=== PATIENT | female | born 1970 | race Caucasian/White ===

== ENCOUNTER 2016-06-28 23:45 | Inpatient (IN) | payer MEDICARE, BC ==
--- NOTE | ~2016-06-28 | HP ---
History And Physical [place] [id number] [facility] [place]. [address] NAME: LYNDSEY WINN : 66 STATUS : ADM IN [facility]#: [id number] AGE: 46 ADM/REG DATE : 06/29/16 MR#: [id number] REPORT SERV DATE: 06/29/16 DICTATED BY: ERNESTINA FREEMAN DATE: 06/29/16 REPORT STATUS : Draft TRANSCRIBED BY: SHAILA DATE: 06/29/16 DATE OF ADMISSION: 06/29/2016 REASON FOR ADMISSION: Altered mentation and chest pain. HISTORY OF PRESENT ILLNESS: This is a chronically ill-appearing, , female patient who dialyzes at [place] on Thursday, , and Thursday. She is attended by her and reports to [facility] with a complaint of chest pain. Her is at her bedside and provides the recent information for HPI as the patient is currently writhing and moaning in bed and does not communicate for questioning for HPI. The patient apparently attended her usual hemodialysis schedule as per schedule on Thursday of the previous week. Post dialysis, she began to have an onset of chest pain and continued to have difficulty over 24 hours prompting evaluation here. The asserts that her altered mentation began while sitting in the emergency department. She has had a CT of the head this morning, which was negative for acute findings. She has previously been evaluated from a cardiologic standpoint and found not to be an operative candidate according to previous 2015 history and physical completed by Dr. Leo Loza. The patient is lying in bed this morning, is awake, but does not communicate during questioning regarding HPI or current medical issues. Her is at bedside and provides information and she does not appear to be in acute distress. PAST MEDICAL HISTORY: Positive for end-stage renal disease. Thursday, , and Thursday hemodialysis at the [place]. History is also positive for coronary artery disease with previous three-vessel CABG with recurrence of disease with her deemed as a non operative candidate. Previous pancreatitis with common bile duct stone extraction; cholecystectomy; CHF; hyperparathyroidism secondary to renal disease, status post subtotal parathyroidectomy; hypertension; hyperlipidemia; tobacco abuse; ongoing SMA stenosis; diabetes mellitus; and chronic back pain with multiple narcotics on board. REVIEW OF SYSTEMS: Unable to be completed with the patient as listed above, due to her perceived altered mentation. SOCIAL HISTORY: No ETOH. No illicit drugs by report of the . Continues to smoke. MEDICATIONS: Current active medications and allergies are as follows on admission: ProAir HFA inhaler p.r.n. shortness of breath, Xanax 0.25 mg p.o. b.i.d. p.r.n. anxiety, ASA 325 mg daily, Tenormin 25 mg p.o. b.i.d., Lipitor 40 mg p.o. at bedtime, Bumex 1 mg p.o. daily, Rocaltrol 0.5 mg Thursday and Thursday, PhosLo four tabs with meals, Marinol 2.5 mg p.o. before breakfast, Cymbalta 20 mg p.o. at bedtime, Lexapro 10 mg p.o. daily, Duragesic 1 topical q.72h, NovoLog via sliding scale, omeprazole 20 mg p.o. daily, Percocet 10/325 one tab q.4 hours p.r.n., MiraLax one packet daily, Effient 10 mg p.o. daily, Lyrica 25 mg p.o. t.i.d., Phenergan 25 mg p.o. t.i.d. and Zanaflex 2 mg p.o. t.i.d. PHYSICAL EXAMINATION: VITAL SIGNS: Blood pressure 195/95, temperature 96.8, respiratory rate 18, heart rate is 68 History And Physical [address] [address] NAME: LYNDSEY WINN : 66 STATUS : ADM [facility]#: [id number] AGE: 46 ADM/REG DATE : 06/29/16 MR#: [id number] REPORT SERV DATE: 06/29/16 DICTATED BY: ERNESTINA FREEMAN DATE: 06/29/16 REPORT STATUS : Draft TRANSCRIBED BY: SHAILA DATE: 06/29/16 beats per minute. GENERAL: She is a chronically ill-appearing, female patient, who does not interact during conversation regarding HPI, with the history of present illness provided by her at bedside. HEENT: Normocephalic, atraumatic. Normal ocular movements. No scleral icterus or conjunctival pallor is appreciated. NECK: Supple without thyromegaly. There is no JVD, no mass. CHEST: Shows positive S1 and S2. No rubs or gallops. LUNGS: Diminished throughout with no evidence of appreciable rhonchi or wheezes. GI: Shows positive bowel sounds. No appreciable mass, no tenderness. : Examination is deferred. EXTREMITIES: Show positive pulses to all four extremities. She does have a left upper extremity fistula with a palpable bruit and thrill. NEUROLOGIC: She is unable to be tested as for reasons stated in HPI. SKIN: Warm, dry, and intact to the visualized surfaces. No rashes, lesions, or ecchymosis. NEURO: Her mood and affect are not measured, but appear to be somewhat inappropriate. LABORATORY DATA: Pertinent laboratories and imaging to this evaluation are as follows: Portable chest x-ray, CABG. No acute cardiopulmonary abnormality. Brain CT without contrast impression, no evidence of acute abnormality. Evaluation very limited by motion. If there is continued clinical concern, repeat exam is recommended. Urinalysis, 100 mg/dL protein, small amount of blood. No leukocyte esterase, rbc's 14, WBC less than 1. Chest pain profile: Sodium 141, potassium 4.8, chloride 96, CO2 of 27, BUN 45, creatinine 0.78, reflected GFR at 4 mL/minute, glucose of 178, calcium 8.7, magnesium 2.3. Troponin less than 0.02. WBC at 9.2, RBC 4.22, hemoglobin 12.7, hematocrit 38.3, platelets at 200. IMPRESSION AND PLAN: End-stage renal disease, Thursday, Thursday at [facility]. Now, reporting to [facility] with chest pain, with non-elevated troponin and acute mental status change after arrival here with a negative head CT and multiple medications as listed above that may effect her orientation. We will hold her pain medications currently with her altered status. Continue her Xanax only on a p.r.n. schedule as it has been. Check an ABG with a smoking history and altered mentation as listed above. Protect her left upper extremity fistula. Consider repeat head CT. Ask Neurology to evaluate the patient for altered mentation and check B12, folic acid, and TSH for underlying metabolic concerns that may be producing her altered state. Control her blood pressure with home medications as well as p.r.n. medications. She continues to show elevation and is unable to take p.o. medications. We may need to place her in an ICU setting for the assistance of Razia. Next hemodialysis will be on Thursday of this week. Trend her troponins. She has clinically been deemed not a surgical candidate in previous follow-ups. Should her troponins show elevation, we would ask for a cardiac evaluation for further opinion regarding maximizing her cardiac potential. Further modification of treatment plan may be made based on the clinical presentation of the patient, laboratory results, and further consultation with Renal attending. We appreciate Neurology's assistance and evaluation with this patient. DICTATED BY: Aakash Mackey NP History And Physical [address] [address] NAME: LYNDSEY WINN : 66 STATUS : ADM IN PAT#: [id number] AGE: 46 ADM/REG DATE : 06/29/16 MR#: [id number] REPORT SERV DATE: 06/29/16 DICTATED BY: ERNESTINA FREEMAN DATE: 06/29/16 REPORT STATUS : Draft TRANSCRIBED BY: SHAILA DATE: 06/29/16 /SHAILA Ernestina Freeman M.D. / [id number] CC: Lachelle Villalobos M.D.
--- NOTE | ~2016-06-28 | DS ---
Discharge Summary [facility] [address] [place]. [address] NAME: LYNDSEY WINN : 66 STATUS : DIS IN PAT#: [id number] AGE: 46 ADM/REG DATE : 06/29/16 MR#: [id number] REPORT SERV DATE: 07/11/16 DICTATED BY: AVELINO HYMAN DATE: 07/10/16 REPORT STATUS : Draft TRANSCRIBED BY: MODKatina DATE: 07/10/16 Data Collection from hospitalization DISCHARGE DIAGNOSES: 1. End-stage renal disease. 2. Hypertension. 3. Diabetes mellitus. 4. Coronary artery disease. 5. History of pancreatitis. 6. Congestive heart failure. 7. Hyperparathyroidism secondary to renal disease. 8. Hyperlipidemia. 9. Tobacco use. 10.Chronic back pain. CONSULTATIONS: Barb Yepez MD. PROCEDURES: 1. Intubation, 06/29/2016. 2. CT scan of the brain without contrast, 06/29/2016. DISCHARGE MEDICATIONS: Dilaudid as instructed, Ativan 2 mg half to 1 janette-dissolved cheek every four hours as needed for agitation, Zofran ODT 8 mg every six hours as needed for nausea and vomiting, Dulcolax 10 mg per rectum if no bowel movement in three days. CONDITION ON DISCHARGE: Stable. DISPOSITION: The patient was discharged home to be followed by [facility] on a renal-diabetic diet with activities as instructed. HOSPITAL COURSE: This is a chronically, ill-appearing, 46-year-old, female who has end-stage renal disease. She presented to the [facility] with the complaint of chest pain. Her was at the bedside and provided the most recent information as the patient was currently writhing and moaning in bed and did not communicate for questioning. She had apparently attended her usual hemodialysis schedule. Postdialysis, she began to have the onset of chest pain and continued to have difficulty over 24 hours which prompted evaluation here. Her asserts that her altered mentation began while sitting in the emergency department. She had a CT scan of the brain without contrast which was negative for acute findings. She was previously evaluated from a cardiac standpoint and found not to be an operative candidate. According to her previous 2016 history which had been completed by Dr. Leo Loza. She was lying in bed at this time and was awake but did not communicate during questioning. She did not appear to be in acute distress. She was admitted to the hospital at this time for further evaluation and treatment. Upon admission, her pain medications were held due to her altered status. Xanax was continued. ABGs were going to be checked. She does smoke. We would protect the left upper extremity fistula. B12, folic acid, and TSH would be checked for underlying metabolic concerns. We would control her blood pressure with home medication. If she continued to Discharge Summary [place] [address] [place]. [address] NAME: LYNDSEY WINN : 66 STATUS : DIS IN PAT#: [id number] AGE: 46 ADM/REG DATE : 06/29/16 MR#: [id number] REPORT SERV DATE: 07/11/16 DICTATED BY: AVELINO HYMAN DATE: 07/10/16 REPORT STATUS : Draft TRANSCRIBED BY: SHAILA DATE: 07/10/16 show elevation and was unable to take oral medications, we may need to place her in the ICU setting for assistance of Razia. We would trend her troponin. She had clinically been deemed not a surgical candidate. Should her troponins show elevation, we would ask for cardiac evaluation for further opinion regarding maximizing her cardiac potential. The following day, she was seen by Dr. Barb Yepez regarding encephalopathy and agitations. Over the course of the day, her condition had escalated to the point of screaming and combativeness that were so severe that the nursing staff were unable to manage her safely. She was transferred to the intensive care unit for additional assistance. It was determined that the best course of action was to electively intubate the patient as she was requiring 4 nurses and 1 nurse tech to restrain her and she was screaming so loudly that it was audible on the other end of the CCU. She was awake and was able to verbalize words. However, did not follow commands. She would not track. She had no lateralizing symptoms. Dr. Yepez performed intubation and placed the patient on propofol and fentanyl for sedation. She met with the patient's after the intubation and had a long conversation about the gradual decline in both renal failure and now severe coronary artery disease without many additional options for management. He verbalized his frustration with her continued decline and noted that he had DNR papers in a gun safe at home and that she had been seen by Dr. Ward in the past. Unfortunately, none of this information was available until after she was intubated and he was without objection to leaving her intubated at this time. It was felt that she may require a lumbar puncture. The patient had recently verbalized that she wanted to be a DNR code status. He stated that her quality of life was fairly poor overall. It was elected to stop dialysis. On 07/01/2016, she appeared comfortable. She was going to be weaned off the ventilator. On 07/01/2016, comfort measures were in place. She was evaluated by Dr. Cash Ward. She was going to be transitioned to the floor. She was going to be kept comfortable. On 07/02/2016, a hospice director met with the patient and her . Hospice services and philosophies were discussed. The patient was in agreement with comfort care and would like to go home with Hospice. Discharge instructions were given. Due to her stable condition, she was discharged home to be followed by [facility] with the above-stated instructions. Information collected by: Mae Elizondo I submit the above information as my discharge summary. TG/MODL Avelino Hyman M.D. / [id number] CC: Lachelle Villalobos M.D. [facility] Sascha Boateng NP
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
--- NOTE | ~2016-06-28 | OP ---
Record Of Operation [facility] [address] [place]. [address] NAME: LYNDSEY WINN : 66 STATUS : ADM IN [facility]#: [id number] AGE: 46 ADM/REG DATE : 06/29/16 MR#: [id number] REPORT SERV DATE: 06/30/16 DICTATED BY: SCOTT TRUONG DATE: 06/30/16 REPORT STATUS : Draft TRANSCRIBED BY: MODL DATE: 06/30/16 DATE OF PROCEDURE: 06/29/2016 INTUBATION NOTE Ms. Winn was intubated for airway protection and acute encephalopathy after discussion with Dr. Perry. Premedication included 75 mg of rocuronium and 20 mg of etomidate and 10 mL of propofol. She was started on propofol and fentanyl drip after tube was placed. PROCEDURE IN DETAIL: Ms. Winn was positioned in the usual fashion and #3 GlideScope was made available. She was administered 20 of etomidate followed by 10 mL of propofol, followed by 75 of rocuronium after satisfactory sedation and paralysis were achieved. The GlideScope was advanced into her mouth and cords were clearly visualized. A #7.5 ET tube was advanced into the trachea on first attempt and secured to her face with an adhesive device following intubation. There were positive breath sounds bilaterally. Absent breath sounds over the fundus of the stomach. Condensation in the tube with bagging and positive color change on CO2 detector. A followup chest x-ray was ordered and was pending at the time of this dictation. An OG tube was placed as well with satisfactory gas bubble auscultated over the fundus of the stomach following insufflation. JAMSHID/SHAILA Scott Truong MD / [id number] CC: Lachelle Villalobos M.D.
[~2016-06-28 23:45] MED LIST: ALAVERT10 MG PO; AMB10 PO; AMITIZA24 PO; APRES50 PO; ASA5GR PO; ASABAYER PO; ATEN25 PO; ATENOLOL; ATV1 PO; BUM1 PO; CALCITRIOL PO; CELEXA40 MG PO; CLARIT10 PO; CREAM FOR PSORIASIS TOP; CRESTOR10 PO; CYMBALTA20 PO; DURA50 TOP; EFFIENT10 PO; FLEX PO; FLONASE NAS; GLUCOTROL5 PO; HYDRO; IMDUR30 PO; IMDUR60 PO; INSULIN SC; JANUVIA25 MG PO; LANTUS SC; LEXAPRO10 PO; LIPITOR40 PO; LOFIBRA54 MG PO; LORTAB10 PO; LYRICA25 PO; MARI2.5 PO; MIRALAXPKT PO; NIASPAN500 PO; NORCO1 TAB PO; NORV5 PO; NOVOLOG; NOVOLOG SC; NOVOPEN SC; PCET PO; PERCOCET1 TA4 PO; PHOSLO PO; PR12.5 PO; PR25 PO; PRILO PO; PROAIR HFA PO; PROMETHAZINE; PROVHFA INH; REST15 PO; RESTORIL30 MG PO; ROCALTROL0.5 MCG PO; SENSIPAR30 M1 OR; SENSIPAR90 MG OR; TIZANIDINE; TUMS E-X750 M2 PO; Tenormin PO; VENTOLIN HFA INH; VICODINTAB PO; X25 PO; XANAX1 MG PO; ZANAFLEX2 MG PO; ZESTRIL20 MG PO; ZOFRAN; ZOFRAN4 PO; ZOL100 PO; [UNRECOGNIZED DRUG - OTHER]; atenolol PO
[2016-06-29 01:37] LABS: DIRECT BILIRUBIN 0.2 MG/DL (0.0-0.4); INDIRECT BILIRUBIN(NOT ORDER) 0.5 MG/DL (0.1-0.9); TOTAL BILIRUBIN 0.7 MG/DL (0-1.2)
[2016-06-29 01:38] LABS: ALBUMIN 4.3 G/DL (3.5-5.0); TOTAL PROTEIN 8.5 G/DL (6.0-8.5)
[2016-06-29 02:20] LABS: BASOPHILS 0.1 %; BASOPHILS ABSOLUTE 0.01 10/3/uL (0.0-0.16); EOSINOPHILS 0.7 %; EOSINOPHILS ABSOLUTE 0.06 10/3/uL (0.0-0.53); IMMATURE GRANULOCYTES 0.2 %; IMMATURE GRANULOCYTES ABSOLUTE 0.02 10/3/uL (0.0-0.11); LYMPHOCYTES 11.9 %; LYMPHOCYTES ABSOLUTE 1.09 10/3/uL (0.67-4.30); MEAN CORPUS HGB CONC 33.2 g/dL (32.0-36.0); MEAN CORPUSCULAR HEMOGLOB 30.1 pg (26.0-34.0); MEAN CORPUSCULAR VOLUME 90.8 fL (80-100); MONOCYTES 1.7 %; MONOCYTES ABSOLUTE 0.16 10/3/uL (0.21-1.20); NEUTROPHILS 85.4 %; NEUTROPHILS ABSOLUTE 7.85 10/3/uL (2.02-8.40); RBC DISTRIBUTION WIDTH 13.7 % (12.0-16.0)
[2016-06-29 02:21] LABS: ER CBC TAT 0 Hrs 05 Mins; HEMATOCRIT 38.3 % (36.0-48.0); HEMOGLOBIN 12.7 g/dL (12.0-16.0); MANUAL DIFF NO %; PLATELET COUNT 200 10/3/uL (150-400); RED CELL COUNT 4.22 10/6/uL (4.0-5.6); WHITE BLOOD CELLS 9.2 10/3/uL (4.5-10.5)
[2016-06-29 02:27] LABS: PARTIAL THROMBO TIME 31.9 SEC (22.5-37.2); PROTIME (NOT ORD) 12.9 SEC (12.0-14.5)
[2016-06-29 02:57] LABS: CHLORIDE, SERUM 96 MMOL/L (96-112); CO2 (CARBON DIOXIDE) 27 MMOL/L (24-34); POTASSIUM, SERUM 4.8 MMOL/L (3.5-5.3); SODIUM, SERUM 141 MMOL/L (135-148); TROPONIN I <0.02 NG/ML (<0.05)
[2016-06-29 02:58] LABS: BUN (BLOOD UREA NITROGEN) 45 MG/DL (6-23); CALCIUM, SERUM 8.7 MG/DL (8.5-10.4); CHEST PAIN PROFILE TAT 0 Hrs 10 Mins; CREATININE 9.78 MG/DL (0.55-1.02); GFR AFRICAN AMERICAN 5 ML/MIN (>=60); GFR NON AFRICAN AMERICAN 4 ML/MIN (>=60); GLUCOSE, SERUM 178 MG/DL (60-99)
[2016-06-29 05:10] LABS: ASCORBIC ACID (UR NOT ORDER) NEG (NEG); BILIRUBIN, URINE NEGATIVE (NEG); ER URINALYSIS TAT 0 Hrs 00 Mins; KETONE, URINE NEGATIVE (NEG); LEUKOCYTE ESTERASE(NOT OR NEG (NEG); NITRITE (URINE) NEG (NEG); WBC (NOT ORDERED) (RFLEX) < 1 (0-5)
[2016-06-29] MEDS ORDERED: *UNABLE1 (10:07)
[2016-06-29 14:56] LABS: ALLENS TEST Pos; BE (BASE EXCESS) 4.5 MEQ/L (0 +/- 2.5); CARBOXYHEMOGLOBIN 1.2 % (0-3); HCO3 (ACTUAL BICARBONATE) 28.1 MEQ/L (23-27); HEMOBLOGIN CONTENT 11.8 G/DL (12-16); INSTRUMENT SERIAL # 8083; METHEMOGLOBIN 0.3 % (0-3); O2 CONTENT 15.3 VOL% (18-24); PCO2 (CO2 TENSION) 38 MMHG (35-45); PO2 (O2 TENSION) 67 MMHG (79-93); SAMPLE Arterial; pH 7.49 (7.37-7.43)
[2016-06-29 17:21] LABS: FOLATE 11.5 NG/ML (>5.2); ULTRASENSITIVE TSH 1.2 MCIU/ML (0.358-3.740)
[2016-06-29 20:42] LABS: BASOPHILS 0.1 %; BASOPHILS ABSOLUTE 0.01 10/3/uL (0.0-0.16); EOSINOPHILS 0 %; HEMATOCRIT 34.7 % (36.0-48.0); HEMOGLOBIN 11.6 g/dL (12.0-16.0); IMMATURE GRANULOCYTES 0.5 %; IMMATURE GRANULOCYTES ABSOLUTE 0.06 10/3/uL (0.0-0.11); LYMPHOCYTES 8.4 %; LYMPHOCYTES ABSOLUTE 1.06 10/3/uL (0.67-4.30); MEAN CORPUS HGB CONC 33.4 g/dL (32.0-36.0); MEAN CORPUSCULAR HEMOGLOB 30.1 pg (26.0-34.0); MEAN CORPUSCULAR VOLUME 90.1 fL (80-100); MEAN PLATELET VOLUME 9.8 fL (9.2-13.0); MONOCYTES 3.9 %; MONOCYTES ABSOLUTE 0.49 10/3/uL (0.21-1.20); NEUTROPHILS 87.1 %; NEUTROPHILS ABSOLUTE 10.96 10/3/uL (2.02-8.40); PLATELET COUNT 178 10/3/uL (150-400); RBC DISTRIBUTION WIDTH 13.9 % (12.0-16.0); RED CELL COUNT 3.85 10/6/uL (4.0-5.6); WHITE BLOOD CELLS 12.6 10/3/uL (4.5-10.5)
[2016-06-29 20:43] LABS: MANUAL DIFF NO %
[2016-06-29 21:43] LABS: ALBUMIN 4.2 G/DL (3.5-5.0); CALCIUM, SERUM 8.3 MG/DL (8.5-10.4); CHLORIDE, SERUM 95 MMOL/L (96-112); CO2 (CARBON DIOXIDE) 28 MMOL/L (24-34); GLUCOSE, SERUM 171 MG/DL (60-99); POTASSIUM, SERUM 4.9 MMOL/L (3.5-5.3); SGOT(AST) 17 U/L (5-40); SGPT(ALT) 40 U/L (5-65); SODIUM, SERUM 136 MMOL/L (135-148); TOTAL BILIRUBIN 0.8 MG/DL (0-1.2); TOTAL PROTEIN 8.3 G/DL (6.0-8.5)
[2016-06-29 21:45] LABS: ALKALINE PHOSPHATASE 93 U/L (45-117); BUN (BLOOD UREA NITROGEN) 59 MG/DL (6-23); GFR AFRICAN AMERICAN 4 ML/MIN (>=60); GFR NON AFRICAN AMERICAN 3 ML/MIN (>=60); GLOBULIN 4.1 G/DL (2.5-4.1)
[2016-06-29 21:47] LABS: TROPONIN I 3.39 NG/ML (<0.05)
[2016-06-30 00:41] LABS: PROCALCITONIN 0.18 ng/mL (<0.5)
[2016-06-30 04:06] LABS: ALLENS TEST Pos; BE (BASE EXCESS) 6.3 MEQ/L (0 +/- 2.5); CARBOXYHEMOGLOBIN 0.3 % (0-3); HCO3 (ACTUAL BICARBONATE) 29.6 MEQ/L (23-27); HEMOBLOGIN CONTENT 11.1 G/DL (12-16); INSTRUMENT SERIAL # 35151; METHEMOGLOBIN 0.3 % (0-3); MODE CMV; O2 CONTENT 13.6 VOL% (18-24); OPERATOR ID 31061; PCO2 (CO2 TENSION) 38 MMHG (35-45); PO2 (O2 TENSION) 52 MMHG (79-93); SAMPLE Arterial; TIDAL VOLUME 500 ML; pH 7.51 (7.37-7.43)
[2016-06-30 05:52] LABS: BASOPHILS 0.2 %; BASOPHILS ABSOLUTE 0.02 10/3/uL (0.0-0.16); EOSINOPHILS 0 %; HEMATOCRIT 33.2 % (36.0-48.0); HEMOGLOBIN 10.8 g/dL (12.0-16.0); IMMATURE GRANULOCYTES 0.3 %; IMMATURE GRANULOCYTES ABSOLUTE 0.04 10/3/uL (0.0-0.11); LYMPHOCYTES 19.8 %; LYMPHOCYTES ABSOLUTE 2.34 10/3/uL (0.67-4.30); MEAN CORPUS HGB CONC 32.5 g/dL (32.0-36.0); MEAN CORPUSCULAR HEMOGLOB 30.3 pg (26.0-34.0); MEAN PLATELET VOLUME 10.1 fL (9.2-13.0); MONOCYTES 6.8 %; MONOCYTES ABSOLUTE 0.81 10/3/uL (0.21-1.20); NEUTROPHILS 72.9 %; NEUTROPHILS ABSOLUTE 8.63 10/3/uL (2.02-8.40); PLATELET COUNT 161 10/3/uL (150-400); RBC DISTRIBUTION WIDTH 13.9 % (12.0-16.0); RED CELL COUNT 3.57 10/6/uL (4.0-5.6); WHITE BLOOD CELLS 11.8 10/3/uL (4.5-10.5)
[2016-06-30 05:53] LABS: MANUAL DIFF NO %
[2016-06-30 06:11] LABS: A/G RATIO 1.1 (0.7-1.9); ALBUMIN 3.6 G/DL (3.5-5.0); CALCIUM, SERUM 8.4 MG/DL (8.5-10.4); CHLORIDE, SERUM 97 MMOL/L (96-112); CO2 (CARBON DIOXIDE) 29 MMOL/L (24-34); GLOBULIN 3.4 G/DL (2.5-4.1); POTASSIUM, SERUM 4.5 MMOL/L (3.5-5.3); SGOT(AST) 20 U/L (5-40); SGPT(ALT) 31 U/L (5-65); SODIUM, SERUM 139 MMOL/L (135-148); TOTAL BILIRUBIN 0.7 MG/DL (0-1.2)
[2016-06-30 06:12] LABS: ALKALINE PHOSPHATASE 78 U/L (45-117); BUN (BLOOD UREA NITROGEN) 65 MG/DL (6-23); GFR AFRICAN AMERICAN 4 ML/MIN (>=60); GFR NON AFRICAN AMERICAN 3 ML/MIN (>=60); GLUCOSE, SERUM 89 MG/DL (60-99); PHOSPHORUS, SERUM 6.6 MG/DL (2.5-4.5); TROPONIN I 5.65 NG/ML (<0.05)
[2016-06-30] MEDS ORDERED: NORV5 PO (10:53)
[2016-06-30] MEDS ORDERED: LEXAPRO10 PO (10:54)
[2016-06-30] MEDS ORDERED: ATEN25 PO (10:54)
[2016-06-30] MEDS ORDERED: EFFIENT10 PO (10:54)
[2016-06-30] MEDS ORDERED: APRES50 PO (10:55)
[2016-06-30] MEDS ORDERED: ASA5GR PO (10:56)
[2016-06-30] MEDS ORDERED: IMDUR60 PO (10:56)
[2016-06-30] MEDS ORDERED: LIPITOR40 (10:57)
[2016-06-30] MEDS ORDERED: BUM1 PO (10:57)
[2016-06-30] MEDS ORDERED: PRILO PO ×2 (10:58→11:07)
[2016-06-30] MEDS ORDERED: RENAL SFTGLS1 MG PO (10:58)
[2016-06-30] MEDS ORDERED: RENVELA800 MG (10:59)
[2016-06-30] MEDS ORDERED: X25 PO (11:00)
[2016-06-30] MEDS ORDERED: ZOFRAN ODT4 MG PO (11:00)
[2016-06-30] MEDS ORDERED: PR25 PO (11:01)
[2016-06-30] MEDS ORDERED: PROAIR HFA INH (11:01)
[2016-06-30] MEDS ORDERED: LYRICA25 (11:02)
[2016-06-30] MEDS ORDERED: OXYCOD PO (11:02)
[2016-06-30] MEDS ORDERED: MIRALAX POWDER1 PKT PO (11:03)
[2016-06-30] MEDS ORDERED: PERI-COLACE1 TAB PO (11:03)
[2016-06-30] MEDS ORDERED: PLAVIX PO (11:03)
[2016-06-30] MEDS ORDERED: REM15 PO (11:04)
[2016-06-30] MEDS ORDERED: CYMBALTA20 (11:04)
[2016-06-30] MEDS ORDERED: NITROSTAT0.4 MG PO (11:04)
[2016-06-30] MEDS ORDERED: FLONASE NAS (11:08)
[2016-06-30] MEDS ORDERED: LANTUSCART (11:08)
== END 2016-07-02 20:50 | disposition hospice, home (50) | DRG 208 ==
LOC: ER 23:45 → 2SO 06-29 12:59 → CCU 06-29 22:34 → 4EA 07-01 15:02
PROVIDERS: Internal Medicine Nephrology; Registered Nurse; Specialist
PROC: 0BH17EZ Insertion of Endotracheal Airway into Trachea, Via Natural or Artificial Opening (ICD-10-PCS; principal; 2016-06-29)
PROC: 5A1935Z Respiratory Ventilation, Less than 24 Consecutive Hours (ICD-10-PCS; 2016-06-30)
DX: J96.01 Acute respiratory failure with hypoxia (principal); G93.40 Encephalopathy, unspecified; E11.22 Type 2 diabetes mellitus with diabetic chronic kidney disease; N18.6 End stage renal disease; Z99.2 Dependence on renal dialysis; D64.9 Anemia, unspecified; I25.10 Atherosclerotic heart disease of native coronary artery without angina pectoris; Z95.1 Presence of aortocoronary bypass graft; F17.210 Nicotine dependence, cigarettes, uncomplicated; Z51.5 Encounter for palliative care; I25.5 Ischemic cardiomyopathy
CPT/HCPCS: 31720; 36600; 70450; 71010; 74000; 80048; 80053; 80069; 80076; 81001; 82140; 82607; 82746; 82805; 82962; 83605; 83690; 83735; 84145; 84443; 84484; 85025; 85610; 85730; 87040; 87070; 87077; 87186; 87205; 87641; 93005; 94002; 94003; 94640; 94770; 96374; 96375; 96376; 99291; A9270-GY; C1894; C9113; J0133; J0360; J1170; J2405; J2543; J3010; J3370